=== PATIENT | female | born 1945 | race Hispanic/Latino ===

== ENCOUNTER 2018-03-24 18:56 | Emergency (ER) | payer MEDICARE ==
[~2018-03-24] VITALS: Ht 152.4 cm; Wt 93.0 kg
[~2018-03-24 18:56] MED LIST: ASPIR 8181 MG PO; CRESTOR20 MG PO; METFORMIN HCL500 MG PO; UNK BP MED
[2018-03-24] MEDS ORDERED: HYDROCODONE/APAP 5MG-325MG TAB PO ONE (19:30)
--- NOTE | 2018-03-24 20:38 | Diagnostic Imaging Report ---
WRIST COMPLETE RIGHT, FOREARM RIGHT 2 VIEW HISTORY: Fall. COMPARISON: None available. FINDINGS: Bones: Mildly displaced mildly comminuted fracture of the distal radius with intra-articular extension. Mildly displaced ulnar styloid fracture. Small calcific density along the dorsum of the wrist on lateral view, likely triquetral fracture. Osseous alignment is within normal limits. Joints: The joint spaces are well-maintained. Soft tissues: Soft tissue swelling of the wrist. IMPRESSION: 1. Comminuted fracture of the distal radius with intra-articular extension. 2. Ulnar styloid fracture. 3. Triquetral fracture. Signed by: DR. Grabiel Shetty MD on 03/24/2018 8:35 PM
== END 2018-03-24 22:56 | disposition home or self-care (01) ==
LOC: ER 18:56
DX: S52.591A Other fractures of lower end of right radius, initial encounter for closed fracture (principal); S52.611A Displaced fracture of right ulna styloid process, initial encounter for closed fracture; W01.0XXA Fall on same level from slipping, tripping and stumbling without subsequent striking against object, initial encounter; Y92.008 Other place in unspecified non-institutional (private) residence as the place of occurrence of the external cause; I10 Essential (primary) hypertension; E78.00 Pure hypercholesterolemia, unspecified; G47.30 Sleep apnea, unspecified
CPT/HCPCS: 99283

== ENCOUNTER → 2019-08-11 | Outpatient (CLI) | payer MEDICARE ==
[~2019-08-11] MED LIST changes: +IOPAMIDOL 370 MG/ML 200 ML INFUS..BTL INJ ONE; +SODIUM CHLORIDE 0.9% 50ML 50 ML ONE
[2019-08-11 12:57] LABS: BLOOD UREA NITROGEN 10 mg/dL (7-26); BUN/CREATININE RATIO 13 (6-25); CREATININE, SERUM 0.79 mg/dL (0.57-1.11); EST GLOMERULAR FILTRATION RATE > 60 ML/MIN (60-)
--- NOTE | 2019-08-11 15:18 | Diagnostic Imaging Report ---
CT SOFT TISSUE NECK W HISTORY: Neck swelling, left neck mass COMPARISON: Reports from head CT dated 07/30/[address] 05/12/2015 (images not available) TECHNIQUE: Axial CT images were obtained through the neck with intravenous, iodine based contrast. Coronal and sagittal reconstructions obtained from the axial data. One or more of the following dose reduction techniques were used: Automated exposure control, adjustment of the mA and/or kV according to patient size, and/or utilization of iterative reconstruction technique. DISCUSSION: Heterogeneous hypodense nodule in the left thyroid lobe measures up to 2 cm in transverse dimension a small coarse calcification is seen in the right thyroid lobe. The visualized upper aerodigestive tract is unremarkable. No radiographically significant cervical adenopathy is seen. The submandibular and parotid glands are unremarkable. Mild bilateral carotid bulb calcified plaque is present. The mds rn, parapharyngeal, posterior cervical, and perivertebral spaces are unremarkable. Carotid siphon calcifications are present. Otherwise, the visualized intracranial compartment and orbits are grossly unremarkable. There is mild scattered mucosal thickening in the ethmoid air cells. Right mastoid/right middle ear and trace left mastoid effusions are present. Mild sclerosis of the right mastoid air cells suggest chronic inflammation. There are mild degenerative changes throughout the spine. There is scarring in the lung apices, left greater than right. IMPRESSION: 1. Indeterminate heterogeneous 2 cm hypodense nodule in the left thyroid lobe. Further evaluation with thyroid ultrasound is recommended. 2. No radiographically significant cervical adenopathy. 3. The imaged upper aerodigestive tract is unremarkable. Signed by: Dr. Alex Alejandro M.D. on 08/11/2019 3:15 PM
== END ==
LOC: CT 11:57
PROVIDERS: ATTEND Internal Medicine
DX: R22.1 Localized swelling, mass and lump, neck (principal); E04.2 Nontoxic multinodular goiter
CPT/HCPCS: 36415; 70491; 82565; 84520; Q9967

== ENCOUNTER → 2022-09-12 | Outpatient (CLI) | payer MEDICARE ==
[~2022-09-12] MED LIST changes: -IOPAMIDOL 370 MG/ML 200 ML INFUS..BTL INJ ONE; -SODIUM CHLORIDE 0.9% 50ML 50 ML ONE
== END ==
LOC: MAMMO 08:19
PROVIDERS: ATTEND Internal Medicine
DX: Z12.31 Encounter for screening mammogram for malignant neoplasm of breast (principal); R10.11 Right upper quadrant pain; K81.9 Cholecystitis, unspecified; E11.9 Type 2 diabetes mellitus without complications
CPT/HCPCS: 76705; 77067

== ENCOUNTER → 2022-11-27 | Day surgery (SDC) | payer MEDICARE ==
[~2022-11-27] MED LIST changes: +AMLODIPINE BESY10 MG PO; +FENTANYL CITRATE/PF 100MCG/2 ML INJ ONE; +LOSARTAN POTAS100 MG PO; +METOPROLOL TART25 MG PO; +MIDAZOLAM HCL 2 MG/2 ML VIAL ONE; +ONDANSETRON HCL INJ 2MG/ML 2ML 2 MG/ML VIAL ONE; +OR PHACO EYE KIT ONE; +POVIDONE IODINE 0.05% 0.05 % ML PO ONE; +PREOP PHACO EYE KIT ONE
[2022-11-27 10:58] VITALS: TEMP 99.2
[2022-11-27 11:10] VITALS: BP 131/61; PULSE 86; RESP 16; O2SAT 97
== END | disposition home or self-care (01) ==
LOC: OR 07:43
PROVIDERS: ATTEND Ophthalmology
DX: H25.11 Age-related nuclear cataract, right eye (principal); E11.9 Type 2 diabetes mellitus without complications; I10 Essential (primary) hypertension; E78.5 Hyperlipidemia, unspecified; Z79.84 Long term (current) use of oral hypoglycemic drugs; Z79.899 Other long term (current) drug therapy
CPT/HCPCS: 36415; 66984; 82948; J2250; J2405; J3010; V2632